=== PATIENT | female | born 1950 | race Caucasian/White ===

== ENCOUNTER 2016-07-14 10:34 | Outpatient (CLI) | payer OTHER, BC ==
--- NOTE | 2016-07-14 12:56 | DIAGNOSTIC IMAGING REPORT ---
PROCEDURE: MR UPPER EXTREMITY W/O CONT-RT INDICATION: RT SHOULDER PAIN TECHNIQUE: PD and FAT-SAT PD, axial, and coronal-oblique images. PD and STIR sagittal-oblique images. COMPARISON: None. 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 There is a 1 cm AP tear of the supraspinatus tendon anteriorly. There is also tendinosis of the distal rotator cuff. There is a small subdeltoid and some bursal effusion. Normal glenoid labrum. Normal bicipital tendon. Normal glenohumeral ligaments. There is atrophy of the supraspinatus, infraspinatus and subscapularis muscles. IMPRESSION: 1. Impingement with 1 cm tear of the supraspinatus tendon anteriorly 2. Subdeltoid and subacromial bursal effusions 3. Muscular atrophy of the shoulder girdle
== END 2016-07-14 23:00 ==
LOC: MRI SRH 10:34
DX: M75.41 Impingement syndrome of right shoulder (principal); M75.101 Unspecified rotator cuff tear or rupture of right shoulder, not specified as traumatic; M25.461 Effusion, right knee